=== PATIENT | male | born 1965 | race Caucasian/White ===

== ENCOUNTER 2017-08-25 18:20 | Inpatient (IN) | payer MEDICARE ==
[~2017-08-25] VITALS: Ht 142.2 cm; Wt 56.1 kg
--- NOTE | ~2017-08-25 | OP ---
PATIENT NAME: NAFISA ECHEVARRIA MEDICAL RECORD: [id number] :63 LOCATION:[facility] ADMISSION DATE:08/25/17 SURGEON: SADIQ SQUIRES MD DATE OF OPERATION: 09/01/2017 SURGEON: Sadiq Squires MD ANESTHESIA: General endotracheal, Dr. Calderon and Dr. Chen. OPERATION PERFORMED: 1. Resection of mediastinal mass through left thoracotomy. 2. Flexible fiberoptic bronchoscopy. 3. Resection of mediastinal lymph node. PREOPERATIVE DIAGNOSIS: Lung mass, left lingular lobe. 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 INDICATION FOR OPERATION: Compressive mass, left chest. FINDINGS OF THE OPERATION: A large mediastinal mass arising from the soft tissues in the mediastinum with a vascular pedicle in the subpleural space. ESTIMATED BLOOD LOSS: Less than 100 mL. Flexible fiberoptic bronchoscopy initially demonstrated compression of the left lower lobe bronchus as well as partial compression of the upper lobe bronchus. Post-procedure, the left main stem bronchus, upper and lower lobes were widely patent. DESCRIPTION OF PROCEDURE: After informed consent, adequate preoperative medication evaluation, the patient was brought to the operating room, placed on the table in the supine position. After induction of general endotracheal anesthesia and application of appropriate monitoring devices, the patient underwent flexible fiberoptic bronchoscopy and placement of a double lumen tube. The above findings were noted. The patient was turned in a right lateral decubitus position, left chest prepped and draped in sterile field, utilizing Betadine scrub, alcohol, and Betadine solution. Betadine-impregnated drape was also used. A posterolateral thoracotomy incision was made and dissection carried down the fascia. Hemostasis maintained with electrocautery. The fifth interspace was opened, the chest explored and the lung was free of tumor; however, it was compressed by the large mediastinal mass. The pleura over the mass was incised with a Harmonic scalpel. The vascular pedicle to the mass was doubly ligated with 2-0 suture ligature proximally and distally. Utilizing sharp dissection, the mass was excised from the mediastinum and parietal pleura. Hemostasis was assured. A lymph node in the bed of the tumor was excised for further evaluation. Chest was irrigated with copious amounts of saline solution and normal saline. Hemostasis assured. A #32 chest tubes were brought in through the anterior axillary line placed in the apex of the left hemithorax. The lung was inflated totally. The instrument count and sponge counts were correct times 2. Chest closed in layers utilizing #2 Vicryl pericostal sutures, #1 Vicryl on the muscle, 2-0 Vicryl on subcutaneous tissue and skin approximated with 3-0 subcuticular Vicryl. Sterile dressings were applied. The patient was OPERATIVE REPORT [id number] NAFISA ECHEVARRIA turned in the supine position. Exchange made for the double lumen tube to a single lumen tube. The bronchi were all open and normal after removing the compressive lesion. The patient was then awakened, extubated and transferred to the [facility] ICU in satisfactory condition. TRANSINT:[id number] Voice Confirmation ID: [id number] DOCUMENT ID: [id number] SADIQ SQUIRES MD at 1318 CC: [id number] DICTATION DATE: 09/01/17 1542 CELLOPHANE CASTING MACHINE REPAIRER: 09/01/17 1611 DIS IN 09/07/17 [id number] [place] [address]
--- NOTE | ~2017-08-25 | EC ---
PATIENT:NAFISA ECHEVARRIA DATE OF SERVICE: 08/25/17 SEX: M MEDICAL RECORD: [id number] DATE OF : 63 LOCATION:[place] [address] AGE OF PATIENT: 51 ADMISSION DATE: 08/25/17 REFERRING PHYSICIAN: INTERPRETING PHYSICIAN: ROSEY SEPULVEDA MD ECHOCARDIOGRAM REPORT ECHO CHARGES 4 ECHO COMPLETE Date: 08/31 CLINICAL DIAGNOSIS: SVT ECHOCARDIOGRAPHIC MEASUREMENTS (adult normal given) AC root (d.<3.7cm) 2.7 cm LV Septum d (<1.2 cm> 1.4 cm Valve Excursion 1.7 cm LV Septum (systole) 2.3 cm Left Atria (s.<4.0cm> 2.9 cm LVPW d(<1.2cm) 1.6 cm RV (d.<2.3cm) 2.2 cm LVPW (sytole) 1.9 cm LV diastole(<5.6CM) 4.2 cm MV E-F(>70mm/sec) cm LV systole 2.1 cm LVOT Diameter 1.7 cm MV exc.(>10mm) cm Est.ejection fraction (50-75%) % DOPPLER: LVIT cm/sec A 84.0 cm/sec E 57.0 cm/sec LA cm/sec RVSP 30.3 mmHg LVOT 128 cm/sec AOP1/2T m/s Asc. Ao 123 cm/sec RVOT 64.0 cm/sec RA cm/sec PA 90.0 cm/sec AV Gradient Peak 6.1 mmHg AV Mean 3.3 mmHg AV Area 2.1 cm MV Gradient Peak 4.7 mmHg MV Mean 1.7 mmHg MV Area cm COMMENTS: Marine Pilot: 1 SYLVIA DÍAZOE Business Education Teacher: 3 Dr. Bryant TAPE# PACS Pericardial Effusion N DATE OF SERVICE: Adequate 2D, color flow, spectral Doppler, and M-mode. No LVH. LV internal dimensions are normal. Wall motion is normal. EF is greater than or equal to 55%. Aortic valve is tricuspid. No stenosis by Doppler interrogation. The left atrium is normal. Mitral valve shows no prolapse. Trace MR. Right-sided chamber is normal. Trace TR. TRANSINT:[id number] Voice Confirmation ID: [id number] DOCUMENT ID: [id number] ECHOCARDIOGRAM REPORT [id number] SEVASTOS,NAFISA ROSEY SEPULVEDA MD at 1001 CC: [id number] DICTATION DATE: 09/01/17 1256 TURF FARM WORKER: 09/01/17 1331 DIS IN 09/07/17 [facility] [address] [place] [address]
--- NOTE | ~2017-08-25 | CN ---
PATIENT NAME:NAFISA ECHEVARRIA MEDICAL RECORD: [id number] : 63 LOCATION:[facility]08 ADMIT DATE: 08/25/17 ACCOUNT: [id number] CONSULTING PHYSICIAN: ROSEY SEPULVEDA MD REFERRING PHYSICIAN: CRESENCIO WEBER MD DATE OF CONSULTATION: 08/31/2017 HISTORY OF PRESENT ILLNESS: A 51-year-old gentleman with a history of reactive airway disease, found to have a mass on outside CT. He was referred here for further evaluation. Plan for OR in the a.m. He has been known to be tachycardic, this was a sinus rhythm on telemetry, asymptomatic. He is currently on steroids and inhalers, at baseline with the systemic reactive airway disease. He is able to easily take care of his ADLs. PAST MEDICAL HISTORY: Otherwise includes: 1. A history of reactive airway disease. 2. Developmental delay. HOME MEDICATIONS: Include Stelazine 5 mg p.o. b.i.d., Thorazine 25 mg p.o. b.i.d., Artane 2 mg p.o. b.i.d. ALLERGIES: EGG. SOCIAL HISTORY: Lives in [place]. He is a nonsmoker. Easily takes care of all his ADLs. REVIEW OF SYSTEMS: The patient reports easy bruising but reports no swollen glands. The patient reports no fever, no night sweats, no significant weight gain, no significant weight loss. No significant exercise tolerance. The patient reports no dry eyes, no irritation, no vision change. Patient reports no difficulty hearing and no ear pain. Patient reports no frequent nose bleeds or nose and sinus problems. Patient reports on arm pain on exertion. No shortness of breath while lying down. No history of heart murmur. Patient reports no cough, no wheezing or coughing up blood. Patient reports no abdominal pain, no vomiting. Normal appetite. No diarrhea and not vomiting blood. No nausea and no constipation. Patient reports no incontinence. No difficulty urinating. No hematuria. No increased frequency. Patient reports no muscle aches. No weakness, no arthralgias, no back pain. No swelling of the extremities. Patient reports no abnormal mole, no jaundice, no rashes. Reports no loss of consciousness. No weakness and no numbness. No seizures, dizziness, or headaches. The patient reports no depression, no sleep disturbance, feeling safe in a relationship and no alcohol abuse. Patient reports on fatigue. Reports no runny nose or sinus pressure. No itching, no hives, and no frequent sneezing. PHYSICAL EXAMINATION: GENERAL: Pleasant gentleman in no acute distress. VITAL SIGNS: Blood pressure 117/63, pulse 106 currently. HEENT: Normocephalic, atraumatic. NECK: No bruits noted. HEART: Regular. LUNGS: Person clear. ABDOMEN: Soft, nontender. EXTREMITIES: Pulses 2+. No edema. CONSULT REPORT [id number] NAFISA ECHEVARRIA IMPRESSION: Sinus tachycardia, multifactorial, appears euvolemic at the current, may be medication related, etc. We will check echocardiographic study. No contraindication to surgery from a cardiovascular standpoint. TRANSINT:[id number] Voice Confirmation ID: [id number] DOCUMENT ID: [id number] ROSEY SEPULVEDA MD at 1337 CC: [id number] DICTATION DATE: 08/31/17 1130 TORCH STRAIGHTENER: 08/31/17 1237 ADM IN [place] [id number] [place] [address]
[2017-08-26] VITALS: BP 121/62
[2017-08-26] MEDS ORDERED: STELAZINE5 MG PO (01:31)
[2017-08-26] MEDS ORDERED: THORAZINE25 MG PO (01:31)
[2017-08-26] MEDS ORDERED: ARTANE2 MG PO (01:32)
[2017-08-26 02:20] LABS: BASOPHILS 0 % (0-2); EOSINOPHILS 0.1 % (0-7); HEMATOCRIT 37.2 % (42.0-54.0); HEMOGLOBIN 12.2 g/dL (13.5-17.5); IMMATURE GRANULOCYTES 0.4 % (0-5); LYMPHOCYTES 5.2 % (15-50); MCH 28.8 pg (26.0-34.0); MCHC 32.8 g/dL (31.0-37.0); MCV 87.9 fL (80.0-100.0); MEAN PLATELET VOLUME 10.2 fL (7.4-10.4); MONOCYTES 6.8 % (2-11); NEUTROPHILS 87.5 % (40-80); PLATELET COUNT 282 10x3/uL (130-400); RBC 4.23 10x6/uL (4.20-6.10); RDW 14.4 % (11.5-14.5); WBC 13.1 10x3/uL (4.8-10.8)
[2017-08-26 02:38] LABS: ALBUMIN 2.7 g/dL (3.4-5.0); ALKALINE PHOSPHATASE 59 U/L (46-116); ALT (SGPT) 17 U/L (10-68); BILIRUBIN - TOTAL 0.18 mg/dL (0.2-1.3); CALC OSMOLALITY 282 mosm/kg (275-300); CALCIUM 8.1 mg/dL (8.5-10.1); CHLORIDE - SERUM 106 mmol/L (98-107); CREATININE - SERUM 0.5 mg/dL (0.6-1.3); GLUCOSE 115 mg/dL (74-106); POTASSIUM - SERUM 4.3 mmol/L (3.5-5.1); PROTEIN - SERUM 6.3 g/dL (6.4-8.2); SODIUM 141 mmol/L (136-145); UREA NITROGEN 14 mg/dL (7-18); eGFR NON AFRICAN AMERICAN > 90 mL/min (90-120)
[2017-08-26 02:41] VITALS: BP 121/62; BMI 22.0
[2017-08-26 04:00] VITALS: BP 99/54
[2017-08-26 05:32] LABS: BASOPHILS 0 % (0-2); EOSINOPHILS 0 % (0-7); HEMATOCRIT 35.7 % (42.0-54.0); HEMOGLOBIN 11.5 g/dL (13.5-17.5); IMMATURE GRANULOCYTES 0.4 % (0-5); LYMPHOCYTES 3.5 % (15-50); MCH 28.5 pg (26.0-34.0); MCHC 32.2 g/dL (31.0-37.0); MCV 88.4 fL (80.0-100.0); MEAN PLATELET VOLUME 10.4 fL (7.4-10.4); MONOCYTES 6.4 % (2-11); NEUTROPHILS 89.7 % (40-80); PLATELET COUNT 282 10x3/uL (130-400); RBC 4.04 10x6/uL (4.20-6.10); RDW 14.4 % (11.5-14.5); WBC 12.4 10x3/uL (4.8-10.8)
[2017-08-26 05:57] LABS: ALBUMIN 2.5 g/dL (3.4-5.0); ALKALINE PHOSPHATASE 53 U/L (46-116); ALT (SGPT) 17 U/L (10-68); BILIRUBIN - TOTAL 0.13 mg/dL (0.2-1.3); CALC OSMOLALITY 283 mosm/kg (275-300); CALCIUM 7.9 mg/dL (8.5-10.1); CARBON DIOXIDE 27.1 mmol/L (21.0-32.0); CHLORIDE - SERUM 107 mmol/L (98-107); CREATININE - SERUM 0.5 mg/dL (0.6-1.3); GLUCOSE 115 mg/dL (74-106); POTASSIUM - SERUM 4.2 mmol/L (3.5-5.1); SODIUM 142 mmol/L (136-145); UREA NITROGEN 13 mg/dL (7-18); eGFR NON AFRICAN AMERICAN > 90 mL/min (90-120)
[2017-08-26 08:04] VITALS: BP 111/61
[2017-08-26 12:18] VITALS: BP 111/70
[2017-08-26 12:22] VITALS: BMI 21.9
[2017-08-26 12:31] LABS: BASOPHILS 0 % (0-2); EOSINOPHILS 0 % (0-7); HEMATOCRIT 37.9 % (42.0-54.0); HEMOGLOBIN 12.3 g/dL (13.5-17.5); IMMATURE GRANULOCYTES 0.2 % (0-5); LYMPHOCYTES 3.1 % (15-50); MCH 28.6 pg (26.0-34.0); MCHC 32.5 g/dL (31.0-37.0); MCV 88.1 fL (80.0-100.0); MEAN PLATELET VOLUME 10.3 fL (7.4-10.4); MONOCYTES 4.3 % (2-11); NEUTROPHILS 92.4 % (40-80); PLATELET COUNT 287 10x3/uL (130-400); RDW 14.6 % (11.5-14.5); WBC 13.5 10x3/uL (4.8-10.8)
[2017-08-26 12:33] LABS: INR 1.03 (0.85-1.17); PROTIME 13.1 SECONDS (11.6-15.0)
[2017-08-26 12:34] LABS: CALC OSMOLALITY 282 mosm/kg (275-300); CALCIUM 8.1 mg/dL (8.5-10.1); CARBON DIOXIDE 27.6 mmol/L (21.0-32.0); CHLORIDE - SERUM 107 mmol/L (98-107); CREATININE - SERUM 0.4 mg/dL (0.6-1.3); GLUCOSE 100 mg/dL (74-106); SODIUM 142 mmol/L (136-145); UREA NITROGEN 12 mg/dL (7-18); eGFR NON AFRICAN AMERICAN > 90 mL/min (90-120)
[2017-08-26 13:07] LABS: APTT 23.2 SECONDS (22.8-39.4)
[2017-08-26 19:54] VITALS: BP 132/61
[2017-08-27] VITALS: BP 106/64
[2017-08-27 04:00] VITALS: BP 146/86
[2017-08-27 05:42] LABS: BASOPHILS 0 % (0-2); EOSINOPHILS 0.1 % (0-7); HEMATOCRIT 40.6 % (42.0-54.0); HEMOGLOBIN 13.2 g/dL (13.5-17.5); IMMATURE GRANULOCYTES 0.5 % (0-5); LYMPHOCYTES 3.2 % (15-50); MCH 29.1 pg (26.0-34.0); MCHC 32.5 g/dL (31.0-37.0); MCV 89.4 fL (80.0-100.0); MEAN PLATELET VOLUME 10.3 fL (7.4-10.4); MONOCYTES 5.6 % (2-11); NEUTROPHILS 90.6 % (40-80); PLATELET COUNT 312 10x3/uL (130-400); RBC 4.54 10x6/uL (4.20-6.10); RDW 14.5 % (11.5-14.5); WBC 14.3 10x3/uL (4.8-10.8)
[2017-08-27 05:49] LABS: % SATURATION 21 % (15-55); IRON 50 ug/dl (35-150); TOTAL IRON BIND CAPACITY 238 ug/dl (260-445); UNSAT IRON BIND CAPACITY 188 ug/dl (150-375)
[2017-08-27 06:08] LABS: ALKALINE PHOSPHATASE 62 U/L (46-116); BILIRUBIN - TOTAL 0.23 mg/dL (0.2-1.3); CALC OSMOLALITY 284 mosm/kg (275-300); CALCIUM 8.2 mg/dL (8.5-10.1); CARBON DIOXIDE 26.9 mmol/L (21.0-32.0); CHLORIDE - SERUM 105 mmol/L (98-107); CREATININE - SERUM 0.5 mg/dL (0.6-1.3); FERRITIN 74 ng/mL (3-244); GLUCOSE 101 mg/dL (74-106); POTASSIUM - SERUM 4.6 mmol/L (3.5-5.1); PROTEIN - SERUM 6.8 g/dL (6.4-8.2); SODIUM 143 mmol/L (136-145); UREA NITROGEN 12 mg/dL (7-18); eGFR NON AFRICAN AMERICAN > 90 mL/min (90-120)
[2017-08-27 06:09] LABS: ALT (SGPT) 25 U/L (10-68)
[2017-08-27 08:13] VITALS: BP 141/92
[2017-08-27 15:50] VITALS: BP 129/77
[2017-08-27 20:00] VITALS: BP 123/62
[2017-08-27 23:45] VITALS: BP 126/75
[2017-08-28 04:00] VITALS: BP 119/59
[2017-08-28 04:37] LABS: BASOPHILS 0 % (0-2); HEMATOCRIT 37.2 % (42.0-54.0); HEMOGLOBIN 11.8 g/dL (13.5-17.5); IMMATURE GRANULOCYTES 1.1 % (0-5); LYMPHOCYTES 17.3 % (15-50); MCH 28.5 pg (26.0-34.0); MCHC 31.7 g/dL (31.0-37.0); MCV 89.9 fL (80.0-100.0); MEAN PLATELET VOLUME 10.4 fL (7.4-10.4); MONOCYTES 13.4 % (2-11); NEUTROPHILS 66.2 % (40-80); PLATELET COUNT 275 10x3/uL (130-400); RBC 4.14 10x6/uL (4.20-6.10); RDW 14.6 % (11.5-14.5); WBC 11.9 10x3/uL (4.8-10.8)
[2017-08-28 05:04] LABS: ALBUMIN 2.3 g/dL (3.4-5.0); ALKALINE PHOSPHATASE 52 U/L (46-116); ALT (SGPT) 19 U/L (10-68); CALC OSMOLALITY 285 mosm/kg (275-300); CALCIUM 7.6 mg/dL (8.5-10.1); CARBON DIOXIDE 29.8 mmol/L (21.0-32.0); CHLORIDE - SERUM 110 mmol/L (98-107); CREATININE - SERUM 0.6 mg/dL (0.6-1.3); GLUCOSE 90 mg/dL (74-106); POTASSIUM - SERUM 4.1 mmol/L (3.5-5.1); PROTEIN - SERUM 5.4 g/dL (6.4-8.2); SODIUM 143 mmol/L (136-145); UREA NITROGEN 14 mg/dL (7-18); eGFR NON AFRICAN AMERICAN > 90 mL/min (90-120)
[2017-08-28 07:47] VITALS: BP 118/74
[2017-08-28 12:23] VITALS: BP 132/84
[2017-08-28 15:55] VITALS: BP 126/74
[2017-08-28 19:53] VITALS: BP 146/72
[2017-08-29] VITALS: BP 126/60; BP 130/76
[2017-08-29 04:00] VITALS: BP 126/59
[2017-08-29 06:37] LABS: BASOPHILS 0.1 % (0-2); EOSINOPHILS 0 % (0-7); HEMATOCRIT 41.9 % (42.0-54.0); HEMOGLOBIN 13.6 g/dL (13.5-17.5); IMMATURE GRANULOCYTES 1.5 % (0-5); LYMPHOCYTES 5.9 % (15-50); MCH 28.7 pg (26.0-34.0); MCHC 32.5 g/dL (31.0-37.0); MCV 88.4 fL (80.0-100.0); MEAN PLATELET VOLUME 10.2 fL (7.4-10.4); MONOCYTES 6.5 % (2-11); RBC 4.74 10x6/uL (4.20-6.10); RDW 14.7 % (11.5-14.5); WBC 14.7 10x3/uL (4.8-10.8)
[2017-08-29 06:38] LABS: PLATELET COUNT 369 10x3/uL (130-400)
[2017-08-29 07:09] LABS: ALBUMIN 2.7 g/dL (3.4-5.0); ALKALINE PHOSPHATASE 63 U/L (46-116); ALT (SGPT) 22 U/L (10-68); CALC OSMOLALITY 281 mosm/kg (275-300); CALCIUM 8.3 mg/dL (8.5-10.1); CARBON DIOXIDE 28.7 mmol/L (21.0-32.0); CHLORIDE - SERUM 107 mmol/L (98-107); CREATININE - SERUM 0.5 mg/dL (0.6-1.3); GLUCOSE 94 mg/dL (74-106); PROTEIN - SERUM 6.5 g/dL (6.4-8.2); SODIUM 142 mmol/L (136-145); UREA NITROGEN 11 mg/dL (7-18); eGFR NON AFRICAN AMERICAN > 90 mL/min (90-120)
[2017-08-29 07:13] LABS: POTASSIUM - SERUM 4.8 mmol/L (3.5-5.1)
[2017-08-29 08:17] VITALS: BP 136/85
[2017-08-29 11:52] VITALS: BP 115/61
[2017-08-29 20:00] VITALS: BP 126/75
[2017-08-30] VITALS: BP 131/62
[2017-08-30 04:00] VITALS: BP 115/59
[2017-08-30 05:41] LABS: BASOPHILS 0.1 % (0-2); EOSINOPHILS 2.9 % (0-7); HEMATOCRIT 40.2 % (42.0-54.0); HEMOGLOBIN 13.1 g/dL (13.5-17.5); LYMPHOCYTES 13.1 % (15-50); MCH 28.9 pg (26.0-34.0); MCHC 32.6 g/dL (31.0-37.0); MCV 88.7 fL (80.0-100.0); MEAN PLATELET VOLUME 9.9 fL (7.4-10.4); MONOCYTES 9.3 % (2-11); NEUTROPHILS 72.6 % (40-80); PLATELET COUNT 322 10x3/uL (130-400); RBC 4.53 10x6/uL (4.20-6.10); RDW 14.8 % (11.5-14.5); WBC 14.3 10x3/uL (4.8-10.8)
[2017-08-30 06:11] LABS: ALBUMIN 2.5 g/dL (3.4-5.0); ALKALINE PHOSPHATASE 56 U/L (46-116); ALT (SGPT) 19 U/L (10-68); BILIRUBIN - TOTAL 0.34 mg/dL (0.2-1.3); CALC OSMOLALITY 280 mosm/kg (275-300); CALCIUM 7.9 mg/dL (8.5-10.1); CARBON DIOXIDE 27.4 mmol/L (21.0-32.0); CHLORIDE - SERUM 107 mmol/L (98-107); CREATININE - SERUM 0.5 mg/dL (0.6-1.3); GLUCOSE 89 mg/dL (74-106); POTASSIUM - SERUM 4.1 mmol/L (3.5-5.1); PROTEIN - SERUM 5.9 g/dL (6.4-8.2); SODIUM 142 mmol/L (136-145); UREA NITROGEN 11 mg/dL (7-18); eGFR NON AFRICAN AMERICAN > 90 mL/min (90-120)
[2017-08-30 09:07] VITALS: BP 114/70
[2017-08-30 13:26] VITALS: BP 113/59
[2017-08-30 16:19] VITALS: BP 119/65
[2017-08-30 20:00] VITALS: BP 112/69
[2017-08-31] VITALS: BP 108/58
[2017-08-31 04:00] VITALS: BP 138/60
[2017-08-31 05:08] LABS: BASOPHILS 0.2 % (0-2); EOSINOPHILS 5.1 % (0-7); HEMATOCRIT 44.6 % (42.0-54.0); HEMOGLOBIN 14.7 g/dL (13.5-17.5); IMMATURE GRANULOCYTES 3.9 % (0-5); LYMPHOCYTES 19.9 % (15-50); MCH 29.2 pg (26.0-34.0); MCV 88.7 fL (80.0-100.0); MEAN PLATELET VOLUME 9.8 fL (7.4-10.4); MONOCYTES 10.2 % (2-11); NEUTROPHILS 60.7 % (40-80); PLATELET COUNT 362 10x3/uL (130-400); RBC 5.03 10x6/uL (4.20-6.10); RDW 14.9 % (11.5-14.5)
[2017-08-31 05:17] LABS: WBC 18.1 10x3/uL (4.8-10.8)
[2017-08-31 05:29] LABS: ALBUMIN 2.5 g/dL (3.4-5.0); ALKALINE PHOSPHATASE 60 U/L (46-116); ALT (SGPT) 21 U/L (10-68); BILIRUBIN - TOTAL 0.31 mg/dL (0.2-1.3); CALC OSMOLALITY 276 mosm/kg (275-300); CALCIUM 7.9 mg/dL (8.5-10.1); CARBON DIOXIDE 27.8 mmol/L (21.0-32.0); CHLORIDE - SERUM 105 mmol/L (98-107); CREATININE - SERUM 0.5 mg/dL (0.6-1.3); GLUCOSE 87 mg/dL (74-106); POTASSIUM - SERUM 4.1 mmol/L (3.5-5.1); PROTEIN - SERUM 6.2 g/dL (6.4-8.2); SODIUM 140 mmol/L (136-145); UREA NITROGEN 11 mg/dL (7-18); eGFR NON AFRICAN AMERICAN > 90 mL/min (90-120)
[2017-08-31 08:21] VITALS: BP 117/63
[2017-08-31 12:09] VITALS: BP 110/59
[2017-08-31 14:27] LABS: HEMATOCRIT 45.9 % (42.0-54.0); HEMOGLOBIN 15.4 g/dL (13.5-17.5); MCH 29.9 pg (26.0-34.0); MCHC 33.6 g/dL (31.0-37.0); MCV 89.1 fL (80.0-100.0); MEAN PLATELET VOLUME 9.9 fL (7.4-10.4); RBC 5.15 10x6/uL (4.20-6.10); RDW 14.7 % (11.5-14.5); WBC 22.6 10x3/uL (4.8-10.8)
[2017-08-31 14:31] LABS: ALBUMIN 2.7 g/dL (3.4-5.0); ALKALINE PHOSPHATASE 75 U/L (46-116); ALT (SGPT) 23 U/L (10-68); BILIRUBIN - TOTAL 0.38 mg/dL (0.2-1.3); CARBON DIOXIDE 23.3 mmol/L (21.0-32.0); CHLORIDE - SERUM 103 mmol/L (98-107); PROTEIN - SERUM 6.2 g/dL (6.4-8.2); SODIUM 137 mmol/L (136-145); UREA NITROGEN 12 mg/dL (7-18)
[2017-08-31 14:33] LABS: CALC OSMOLALITY 279 mosm/kg (275-300); CREATININE - SERUM 0.8 mg/dL (0.6-1.3); GLUCOSE 202 mg/dL (74-106); POTASSIUM - SERUM 4.8 mmol/L (3.5-5.1); eGFR NON AFRICAN AMERICAN > 90 mL/min (90-120)
[2017-08-31 14:43] LABS: APTT 30.1 SECONDS (22.8-39.4); INR 1.11 (0.85-1.17); PROTIME 13.9 SECONDS (11.6-15.0)
[2017-08-31 22:20] VITALS: BP 117/70
[2017-09-01] VITALS (37 sets, daily range): BP systolic 88–134; BP diastolic 44–78
[2017-09-01 06:00] LABS: BASOPHILS 0.2 % (0-2); EOSINOPHILS 3.3 % (0-7); HEMATOCRIT 45.9 % (42.0-54.0); HEMOGLOBIN 15.1 g/dL (13.5-17.5); IMMATURE GRANULOCYTES 3.8 % (0-5); LYMPHOCYTES 20.2 % (15-50); MCH 29.3 pg (26.0-34.0); MCHC 32.9 g/dL (31.0-37.0); MEAN PLATELET VOLUME 9.5 fL (7.4-10.4); MONOCYTES 10.9 % (2-11); NEUTROPHILS 61.6 % (40-80); PLATELET COUNT 375 10x3/uL (130-400); RBC 5.16 10x6/uL (4.20-6.10); RDW 14.8 % (11.5-14.5); WBC 18.1 10x3/uL (4.8-10.8)
[2017-09-01 06:38] LABS: ALBUMIN 2.7 g/dL (3.4-5.0); ALKALINE PHOSPHATASE 66 U/L (46-116); ALT (SGPT) 25 U/L (10-68); CALCIUM 8.2 mg/dL (8.5-10.1); CARBON DIOXIDE 27.7 mmol/L (21.0-32.0); CHLORIDE - SERUM 106 mmol/L (98-107); POTASSIUM - SERUM 4.1 mmol/L (3.5-5.1); PROTEIN - SERUM 6.4 g/dL (6.4-8.2); SODIUM 140 mmol/L (136-145); UREA NITROGEN 12 mg/dL (7-18)
[2017-09-01 06:39] LABS: CALC OSMOLALITY 278 mosm/kg (275-300); CREATININE - SERUM 0.5 mg/dL (0.6-1.3); GLUCOSE 93 mg/dL (74-106); eGFR NON AFRICAN AMERICAN > 90 mL/min (90-120)
[2017-09-01] MEDS ORDERED: VOSPIRE ER4 MG PO (17:04)
[2017-09-01] MEDS ORDERED: PREDNISONE10 MG PO (17:07)
[2017-09-01] MEDS ORDERED: SINGULAIR10 MG PO (17:07)
[2017-09-01] MEDS ORDERED: FLOVENT DISKU100 MCG INH (17:08)
[2017-09-01] MEDS ORDERED: COMBIVENT RESPIM4 GM INH (17:09)
[2017-09-02] VITALS (56 sets, daily range): BP systolic 97–132; BP diastolic 37–75
[2017-09-02 01:06] LABS: APPEARANCE CLEAR (CLEAR); BILIRUBIN NEGATIVE (NEGATIVE); COLOR U (YELLOW); GLUCOSE NEGATIVE (NEGATIVE); KETONE SMALL mg/dL (NEGATIVE); NITRITE NEGATIVE (NEGATIVE); PROTEIN NEGATIVE (NEGATIVE); SPECIFIC GRAVITY 1.015 (1.005-1.020); UROBILINOGEN NORMAL (NORMAL)
[2017-09-02 01:07] LABS: WHITE CELLS - URINE 0-5 /hpf (0-5)
[2017-09-02 01:08] LABS: BACTERIA FEW /hpf (NONE SEEN); EPITHELIAL CELLS 0-5 /hpf (0-5); HYALINE CAST OCC /lpf (NONE SEEN); RED CELLS - URINE 0-5 /hpf (0-5)
[2017-09-02 04:43] LABS: IMMUNOGLOBULIN E 258 IU/mL (0-100)
[2017-09-02 06:18] LABS: BASOPHILS 0 % (0-2); EOSINOPHILS 0 % (0-7); HEMATOCRIT 40.9 % (42.0-54.0); HEMOGLOBIN 13.4 g/dL (13.5-17.5); LYMPHOCYTES 3.1 % (15-50); MCH 29.5 pg (26.0-34.0); MCHC 32.8 g/dL (31.0-37.0); MCV 89.9 fL (80.0-100.0); MEAN PLATELET VOLUME 9.4 fL (7.4-10.4); NEUTROPHILS 91.9 % (40-80); PLATELET COUNT 287 10x3/uL (130-400); RBC 4.55 10x6/uL (4.20-6.10); RDW 14.7 % (11.5-14.5); WBC 26.5 10x3/uL (4.8-10.8)
[2017-09-02 07:03] LABS: ALBUMIN 2.4 g/dL (3.4-5.0); ALKALINE PHOSPHATASE 61 U/L (46-116); ALT (SGPT) 38 U/L (10-68); CALC OSMOLALITY 282 mosm/kg (275-300); CALCIUM 7.9 mg/dL (8.5-10.1); CARBON DIOXIDE 26.8 mmol/L (21.0-32.0); CHLORIDE - SERUM 106 mmol/L (98-107); CREATININE - SERUM 0.7 mg/dL (0.6-1.3); GLUCOSE 141 mg/dL (74-106); LDH 228 U/L (85-227); POTASSIUM - SERUM 4.6 mmol/L (3.5-5.1); SODIUM 140 mmol/L (136-145); UREA NITROGEN 18 mg/dL (7-18); eGFR NON AFRICAN AMERICAN > 90 mL/min (90-120)
[2017-09-03] VITALS (24 sets, daily range): BP systolic 104–148; BP diastolic 54–76
[2017-09-03 06:18] LABS: BASOPHILS 0.1 % (0-2); HEMATOCRIT 34.6 % (42.0-54.0); HEMOGLOBIN 11.4 g/dL (13.5-17.5); IMMATURE GRANULOCYTES 0.6 % (0-5); LYMPHOCYTES 5.5 % (15-50); MCH 29.4 pg (26.0-34.0); MCHC 32.9 g/dL (31.0-37.0); MCV 89.2 fL (80.0-100.0); MEAN PLATELET VOLUME 9.4 fL (7.4-10.4); MONOCYTES 9.5 % (2-11); NEUTROPHILS 80.3 % (40-80); PLATELET COUNT 252 10x3/uL (130-400); RBC 3.88 10x6/uL (4.20-6.10); RDW 14.5 % (11.5-14.5); WBC 19.6 10x3/uL (4.8-10.8)
[2017-09-03 06:37] LABS: ALBUMIN 1.9 g/dL (3.4-5.0); ALKALINE PHOSPHATASE 55 U/L (46-116); CALCIUM 7.6 mg/dL (8.5-10.1); CARBON DIOXIDE 27.3 mmol/L (21.0-32.0); CHLORIDE - SERUM 102 mmol/L (98-107); CREATININE - SERUM 0.6 mg/dL (0.6-1.3); GLUCOSE 110 mg/dL (74-106); POTASSIUM - SERUM 4.2 mmol/L (3.5-5.1); PROTEIN - SERUM 5.4 g/dL (6.4-8.2); SODIUM 136 mmol/L (136-145); eGFR NON AFRICAN AMERICAN > 90 mL/min (90-120)
[2017-09-03 06:38] LABS: ALT (SGPT) 23 U/L (10-68); CALC OSMOLALITY 271 mosm/kg (275-300); UREA NITROGEN 10 mg/dL (7-18)
[2017-09-03 07:36] LABS: HCG-QUANTITATIVE(TUMOR MARKER) <1 mIU/mL (0-3)
[2017-09-03 12:19] LABS: ALPHA FETOPROTEIN -(TUMOR MRK) 1.1 ng/mL (0.0-8.3)
[2017-09-04] VITALS (20 sets, daily range): BP systolic 102–144; BP diastolic 52–79; Ht 142.2 cm; Wt 56.1 kg
[2017-09-04 06:15] LABS: BASOPHILS 0.1 % (0-2); EOSINOPHILS 3.8 % (0-7); HEMOGLOBIN 10.5 g/dL (13.5-17.5); IMMATURE GRANULOCYTES 0.5 % (0-5); LYMPHOCYTES 7.8 % (15-50); MCH 28.8 pg (26.0-34.0); MCHC 32.8 g/dL (31.0-37.0); MCV 87.7 fL (80.0-100.0); MEAN PLATELET VOLUME 9.6 fL (7.4-10.4); MONOCYTES 8.9 % (2-11); NEUTROPHILS 78.9 % (40-80); PLATELET COUNT 225 10x3/uL (130-400); RBC 3.65 10x6/uL (4.20-6.10); RDW 14.3 % (11.5-14.5)
[2017-09-04 06:16] LABS: WBC 14.6 10x3/uL (4.8-10.8)
[2017-09-04 06:46] LABS: ALBUMIN 1.8 g/dL (3.4-5.0); ALKALINE PHOSPHATASE 61 U/L (46-116); ALT (SGPT) 22 U/L (10-68); CALC OSMOLALITY 276 mosm/kg (275-300); CARBON DIOXIDE 28.3 mmol/L (21.0-32.0); CHLORIDE - SERUM 104 mmol/L (98-107); GLUCOSE 125 mg/dL (74-106); LDH 206 U/L (85-227); MAGNESIUM - SERUM 1.9 mg/dL (1.8-2.4); PHOSPHOROUS 2.6 mg/dL (2.5-4.9); PROTEIN - SERUM 5.5 g/dL (6.4-8.2); SODIUM 139 mmol/L (136-145); UREA NITROGEN 8 mg/dL (7-18)
[2017-09-04 06:48] LABS: CREATININE - SERUM 0.8 mg/dL (0.6-1.3); POTASSIUM - SERUM 3.4 mmol/L (3.5-5.1); eGFR NON AFRICAN AMERICAN > 90 mL/min (90-120)
[2017-09-05] VITALS (23 sets, daily range): BP systolic 103–139; BP diastolic 47–81
[2017-09-05 05:11] LABS: BASOPHILS 0.1 % (0-2); EOSINOPHILS 2.9 % (0-7); HEMATOCRIT 28.7 % (42.0-54.0); HEMOGLOBIN 9.9 g/dL (13.5-17.5); IMMATURE GRANULOCYTES 0.9 % (0-5); LYMPHOCYTES 11.2 % (15-50); MCH 30.6 pg (26.0-34.0); MCHC 34.5 g/dL (31.0-37.0); MCV 88.6 fL (80.0-100.0); MEAN PLATELET VOLUME 9.5 fL (7.4-10.4); MONOCYTES 11.6 % (2-11); NEUTROPHILS 73.3 % (40-80); PLATELET COUNT 250 10x3/uL (130-400); RBC 3.24 10x6/uL (4.20-6.10); RDW 14.4 % (11.5-14.5); WBC 15.6 10x3/uL (4.8-10.8)
[2017-09-05 05:33] LABS: ALBUMIN 1.7 g/dL (3.4-5.0); ALKALINE PHOSPHATASE 56 U/L (46-116); ALT (SGPT) 18 U/L (10-68); BILIRUBIN - TOTAL 0.38 mg/dL (0.2-1.3); CALCIUM 7.9 mg/dL (8.5-10.1); CARBON DIOXIDE 28.5 mmol/L (21.0-32.0); CHLORIDE - SERUM 105 mmol/L (98-107); GLUCOSE 94 mg/dL (74-106); POTASSIUM - SERUM 3.7 mmol/L (3.5-5.1); PROTEIN - SERUM 5.4 g/dL (6.4-8.2); SODIUM 140 mmol/L (136-145)
[2017-09-05 05:38] LABS: CALC OSMOLALITY 278 mosm/kg (275-300); CREATININE - SERUM 0.4 mg/dL (0.6-1.3); UREA NITROGEN 12 mg/dL (7-18); eGFR NON AFRICAN AMERICAN > 90 mL/min (90-120)
[2017-09-05 07:04] LABS: HCG-QUANTITATIVE(TUMOR MARKER) <1 mIU/mL (0-3)
[2017-09-06] VITALS (14 sets, daily range): BP systolic 96–133; BP diastolic 47–67
[2017-09-06 05:51] LABS: BASOPHILS 0.1 % (0-2); EOSINOPHILS 3.9 % (0-7); HEMATOCRIT 31.1 % (42.0-54.0); HEMOGLOBIN 9.9 g/dL (13.5-17.5); IMMATURE GRANULOCYTES 1.6 % (0-5); LYMPHOCYTES 12.6 % (15-50); MCH 28.4 pg (26.0-34.0); MCHC 31.8 g/dL (31.0-37.0); MCV 89.4 fL (80.0-100.0); MEAN PLATELET VOLUME 9.3 fL (7.4-10.4); MONOCYTES 11.7 % (2-11); NEUTROPHILS 70.1 % (40-80); PLATELET COUNT 298 10x3/uL (130-400); RBC 3.48 10x6/uL (4.20-6.10); RDW 14.6 % (11.5-14.5); WBC 15.3 10x3/uL (4.8-10.8)
[2017-09-06 06:01] LABS: CALC OSMOLALITY 280 mosm/kg (275-300); CALCIUM 7.8 mg/dL (8.5-10.1); CARBON DIOXIDE 29.6 mmol/L (21.0-32.0); CHLORIDE - SERUM 106 mmol/L (98-107); CREATININE - SERUM 0.4 mg/dL (0.6-1.3); GLUCOSE 87 mg/dL (74-106); MAGNESIUM - SERUM 1.8 mg/dL (1.8-2.4); POTASSIUM - SERUM 3.9 mmol/L (3.5-5.1); SODIUM 142 mmol/L (136-145); UREA NITROGEN 10 mg/dL (7-18); eGFR NON AFRICAN AMERICAN > 90 mL/min (90-120)
[2017-09-07 03:00] VITALS: BP 127/63
[2017-09-07 06:09] LABS: BASOPHILS 0.1 % (0-2); EOSINOPHILS 2.9 % (0-7); HEMATOCRIT 32.8 % (42.0-54.0); HEMOGLOBIN 10.8 g/dL (13.5-17.5); IMMATURE GRANULOCYTES 1.9 % (0-5); LYMPHOCYTES 11.6 % (15-50); MCH 29.2 pg (26.0-34.0); MCHC 32.9 g/dL (31.0-37.0); MCV 88.6 fL (80.0-100.0); MEAN PLATELET VOLUME 9.2 fL (7.4-10.4); MONOCYTES 10.4 % (2-11); NEUTROPHILS 73.1 % (40-80); PLATELET COUNT 352 10x3/uL (130-400); RDW 14.6 % (11.5-14.5)
[2017-09-07 06:16] LABS: WBC 19.3 10x3/uL (4.8-10.8)
[2017-09-07 06:39] LABS: CALC OSMOLALITY 275 mosm/kg (275-300); CALCIUM 8.2 mg/dL (8.5-10.1); CARBON DIOXIDE 27.7 mmol/L (21.0-32.0); CHLORIDE - SERUM 103 mmol/L (98-107); CREATININE - SERUM 0.4 mg/dL (0.6-1.3); GLUCOSE 84 mg/dL (74-106); SODIUM 139 mmol/L (136-145); UREA NITROGEN 11 mg/dL (7-18); eGFR NON AFRICAN AMERICAN > 90 mL/min (90-120)
[2017-09-07 07:00] VITALS: BP 123/64
[2017-09-07] MEDS ORDERED: CARDIZEM60 MG PO (09:08)
[2017-09-07] MEDS ORDERED: ASPIRIN81 MG NG (09:08)
[2017-09-09 11:19] LABS: ACR - BINDING <0.03 nmol/L (0.00-0.24); ACR - BLOCKING 13 % (0-25); ACR - MODULATING <12 % (0-20)
== END 2017-09-07 13:39 | disposition home or self-care (01) | DRG 163 ==
LOC: D.M2 18:20 → D.MS 21:24 → D.CVICU 21:24
PROVIDERS: Family Medicine; Internal Medicine Cardiovascular Disease; Internal Medicine Hematology & Oncology; Internal Medicine Pulmonary Disease; Radiology Vascular & Interventional Radiology
PROC: 0BBL3ZX Excision of Left Lung, Percutaneous Approach, Diagnostic (ICD-10-PCS; principal; 2017-08-26 15:15)
PROC: 07T70ZZ Resection of Thorax Lymphatic, Open Approach (ICD-10-PCS; 2017-09-01)
PROC: 0BBP0ZZ Excision of Left Pleura, Open Approach (ICD-10-PCS; 2017-09-01)
PROC: 0WBC0ZZ Excision of Mediastinum, Open Approach (ICD-10-PCS; 2017-09-01 10:30)
DX: D15.2 Benign neoplasm of mediastinum (principal); J18.1 Lobar pneumonia, unspecified organism; J96.01 Acute respiratory failure with hypoxia; J96.02 Acute respiratory failure with hypercapnia; J45.901 Unspecified asthma with (acute) exacerbation; J98.11 Atelectasis; J90 Pleural effusion, not elsewhere classified; J20.9 Acute bronchitis, unspecified; K21.9 Gastro-esophageal reflux disease without esophagitis; F32.9 Major depressive disorder, single episode, unspecified; F81.9 Developmental disorder of scholastic skills, unspecified; T88.59XA Other complications of anesthesia, initial encounter; J98.09 Other diseases of bronchus, not elsewhere classified

== ENCOUNTER → 2017-09-24 10:01 | Outpatient (CLI) | payer MEDICARE ==
[2017-09-04 16:16] VITALS: BMI 21.9
[~2017-09-24 10:01] MED LIST: ARTANE2 MG PO; ASPIRIN81 MG NG; CARDIZEM60 MG PO; COMBIVENT RESPIM4 GM INH; FLOVENT DISKU100 MCG INH; PREDNISONE10 MG PO; SINGULAIR10 MG PO; STELAZINE5 MG PO; THORAZINE25 MG PO; VOSPIRE ER4 MG PO
== END | disposition home or self-care (01) ==
LOC: D.RAD 08:00
DX: J91.8 Pleural effusion in other conditions classified elsewhere (principal)

== ENCOUNTER → 2018-10-14 10:28 | Outpatient (CLI) | payer MEDICARE ==
[2017-09-04 16:16] VITALS: BMI 21.9
== END | disposition home or self-care (01) ==
LOC: D.RAD 10:28
PROVIDERS: ATTEND Internal Medicine Cardiovascular Disease
DX: R91.8 Other nonspecific abnormal finding of lung field (principal)